=== PATIENT | male | born 1950 | race Caucasian/White ===

== ENCOUNTER → 2017-08-20 | Outpatient (CLI) | payer MEDICARE, BC ==
[2017-08-20 13:31] LABS: ANION GAP 8 MEQ/L (5-15); AST (GOT) 17 U/L (15-37); BICARBONATE 28.7 MEQ/L (21.0-32.0); BLOOD UREA NITROGEN 11 MG/DL (7-18); CHLORIDE 101 MEQ/L (98-107); GLOMERULAR FILTRATION RATE 102 ML/MIN (>89); GLUCOSE,FASTING 149 MG/DL (74-99); HEMATOCRIT 49.6 % (39.0-51.0); MEAN CELL VOLUME 101.2 FL (80.0-100.0); MEAN CORPUSCULAR HEMOGLOBIN 34.8 PG (27.0-34.0); MEAN CORPUSCULAR HGB CONC 34.4 % (32.0-36.0); PLATELET COUNT 182 TH/MM3 (150-450); RED CELL DISTRIBUTION WIDTH 12.9 % (11.6-17.2); SODIUM (NA) 138 MEQ/L (136-145); WHITE BLOOD COUNT 5.9 TH/MM3 (4.0-11.0)
[2017-08-20 13:35] LABS: HEMO FLAGS AUTO DIFF
[2017-08-20 13:36] LABS: ALKALINE PHOSPHATASE 38 U/L (45-117); ALT (GPT) 24 U/L (12-78); HDL CHOLESTEROL 53.9 MG/DL (40.0-60.0); LDL CHOLESTEROL 246 MG/DL (0-99); TOTAL BILIRUBIN ADULT 0.7 MG/DL (0.2-1.0)
[2017-08-20 16:41] LABS: HEMOGLOBIN A1a 0.9 %; HEMOGLOBIN A1b 2.2 %; HEMOGLOBIN Ao 82.8 %; HEMOGLOBIN LA1C 2.4 %
[2017-08-20 17:26] LABS: BANDS 2 % (0-6); BASOPHILS 1 % (0-2); EOSINOPHILS 2 % (0-4); NEUTROPHIL # MANUAL DIFF 3.9 TH/MM3 (1.8-7.7); POLYS (SEG NEUTROPHILS) 64 % (16-70); WBC DIFF SAMPLE 100
[2017-08-20 17:28] LABS: PLATELET ESTIMATE SMEAR NORMAL (NORMAL); PLATELET MORPHOLOGY NORMAL (NORMAL); SCAN/DIFF FINAL DIFF MANUAL
== END ==
LOC: PLAB 08:36
PROVIDERS: ATTEND Nurse Practitioner Family
DX: R21 Rash and other nonspecific skin eruption (principal); E78.2 Mixed hyperlipidemia; E11.9 Type 2 diabetes mellitus without complications; Z11.59 Encounter for screening for other viral diseases; Z78.9 Other specified health status
CPT/HCPCS: 36415; 80053; 80061; 83036; 85007; 85027; 86803

== ENCOUNTER → 2017-12-31 | Outpatient (CLI) | payer MEDICARE, BC ==
[2017-12-31 13:03] LABS: ALBUMIN 4.2 GM/DL (3.4-5.0); ALT (GPT) 18 U/L (12-78); AST (GOT) 13 U/L (15-37); CHOLESTEROL 338 MG/DL (120-200); DIRECT BILIRUBIN ADULT 0.1 MG/DL (0.0-0.2); TRIGLYCERIDES 273 MG/DL (42-150)
[2017-12-31 13:05] LABS: ALKALINE PHOSPHATASE 43 U/L (45-117); HDL CHOLESTEROL 50.4 MG/DL (40.0-60.0); INDIRECT BILIRUBIN 0.7 MG/DL (0.0-0.8); LDL CHOLESTEROL 233 MG/DL (0-99); TOTAL BILIRUBIN ADULT 0.8 MG/DL (0.2-1.0); TOTAL PROTEIN 8.1 GM/DL (6.4-8.2)
[2017-12-31 16:30] LABS: HEMOGLOBIN A1C 7.2 % (4.3-6.0)
== END ==
LOC: PLAB 08:16
PROVIDERS: ATTEND Family Medicine
DX: E11.9 Type 2 diabetes mellitus without complications (principal); E78.2 Mixed hyperlipidemia; R21 Rash and other nonspecific skin eruption; R03.0 Elevated blood-pressure reading, without diagnosis of hypertension
CPT/HCPCS: 36415; 80061; 80076; 83036

== ENCOUNTER → 2018-02-08 | Outpatient (CLI) | payer MEDICARE, BC ==
[2018-02-08 13:47] LABS: CALCIUM 10.3 MG/DL (8.5-10.1); PHOSPHORUS 3.1 MG/DL (2.5-4.9)
== END ==
LOC: PLAB 09:32
PROVIDERS: ATTEND Orthopaedic Surgery Sports Medicine
DX: M81.0 Age-related osteoporosis without current pathological fracture (principal)
CPT/HCPCS: 36415; 82306; 82310; 84100